=== PATIENT | female | born 1955 | race Caucasian/White ===

== ENCOUNTER 2019-10-06 14:45 | Emergency (ER) | payer MEDICARE, OTHER, SELFPAY | END 2019-10-06 18:20 | disposition home or self-care (01) | PROVIDERS: Family Provider Family Medicine | DX: R07.89 Other chest pain (principal); Z87.891 Personal history of nicotine dependence; J44.9 Chronic obstructive pulmonary disease, unspecified ==

== ENCOUNTER 2021-02-03 09:46 | Emergency (ER) | payer MEDICARE, OTHER, SELFPAY ==
[2021-02-03] VITALS (8 sets, daily range): BP systolic 127–148; BP diastolic 61–94; PULSE 59–84; RESP 14–24; TEMP 36.4; O2SAT 95–98; BMI 33.4
--- NOTE | 2021-02-03 10:11 | XR_ITS ---
WS: [id number] Exam: XR chest 1V portable [id number] Date/Time of Exam: 02/03/2021 10:15 AM Reason For Exam: anxiety/cp Comparison 10/06/2019. The lungs are clear and fully inflated. Normal cardiomediastinal structures and bony elements. No ple ural effusions. XR/XR chest 1V portable [id number] IMPRESSION: 1. No acute cardiopulmonary finding.
--- NOTE | 2021-02-03 10:13 | ED_ITS ---
HPI - Anxiety General: Chief Complaint: Anxiety Stated Complaint: CP Time Seen by Provider: 02/03/21 10:11 History of Present Illness: HPI narrative: Patient is a 65-year-old female comes to the ED with chest pain and shortness of breath. Patient has a past me dical history of asthma and anxiety. Symptoms started this morning. Patient says she has had episodes like this in the past and the chest pain and shortness of breath come on after she has a coughing fit. Her shortness of breath she describes as being her baseline due to her asthma and she has an inhaler that she uses at home. Chest pain started this morning after she was coughing a bunch. The chest pain is on the left side of her chest. Denies any hemoptysis, PE history or past history of cardiac problems. Patient did not also indicate that she has had a lot of anxiety lately and just started taking citalopram to help with her anxiety. Patient had 2 of her friends recently along with her cat. Denies any SI Associated symptoms: Reports chest pain; Deny chills, fever(s), headache(s), nausea, palpitations or vomiting Review of Systems Const: Denies: fever(s), chills or fatigue Eyes: Denies: change in vision or eye discomfort ENMT: Denies: throat pain, odynophagia, nasal discharge or nasal congestion Card: Reports: chest pain; Denies: palpitations, edema, swelling of feet/ankles, dyspnea on exertion or orthopnea Resp: Reports: dyspnea; Denies: productive cough or non-productive cough GI: Denies: abdominal pain, nausea, vomiting, diarrhea, constipation or hematochezia : Denies: flank pain, dysuria or hematuria Musc: Denies: neck pain, back pain or extremity swelling Skin/Breast: Denies: rash or new lesions Neuro: Denies: headache(s), numbness in extremities or weakness in extremities Psych: Reports: anxiety; Denies: suicidal ideation Physical Exam Const: COMMON NORMALS: no acute distress, patient oriented x3, healthy appearing and alert GENERAL APPEARANCE: cooperative and comfortable HENMT: COMMON NORMALS: normocephalic HEAD & SCALP: normocephalic MOUTH: Normal oral and palatal mucosa present THROAT: posterior oropharynx normal and uvula midline Neck/C-Spine: COMMON NORMALS: supple GENERAL: Yes normal visual inspection Resp: COMMON NORMALS: normal respiratory effort, No retractions and No use of accessory muscles EFFORT & INSPECTION: Yes able to speak in complete sentences, No tachypneic, No respiratory distress and No labored AUSCULTATION: wheezes expiratory wheezes and upper bilaterally Cardio: COMMON NORMALS: regular rate, regular rhythm, S1 normal heart sound present, S2 normal heart sound present, No gallops present (Cardio), No clicks present (Cardio), No murmurs present (Cardio) and Peripheral pulses 2+ throughout RATE: regular rate RHYTHM: regular rhythm HEART SOUNDS: S1 normal heart sound present and S2 normal heart sound present PERIPHERAL PULSES: Peripheral pulses 2+ throughout GI: COMMON NORMALS: Normal to inspection, nondistended, normoactive bowel sounds present, Soft to palpation, non-tender and no masses PALPATION: Yes Soft to palpation : COMMON NORMALS: Yes no CVA tenderness BLADDER/KIDNEY EXAM: Yes no CVA tenderness Back/Pelvis: COMMON NORMALS: no CVA tenderness Extremity: COMMON NORMALS: normal to inspection and no pedal edema Neuro: COMMON NORMALS: patient oriented x3 and moves all extremities SENSORIUM/ORIENTATION: Yes alert Skin: GENERAL SKIN EXAM: dry skin Course Reevaluation(s): Reevaluation #1: After patient was given IV Ativan and breathing treatment she says her symptoms have improved. She says her chest pain is gone. Upon auscultation of her lungs after breathing treatment there was improvement in wheezing symptoms. Time: 11:41 Vital Signs: Vital signs: Vital Signs Temperature 97.5 F L 02/03/21 09:55 Pulse Rate 76 02/03/21 13:20 Respiratory Rate 20 H 02/03/21 13:20 Blood Pressure 127/71 02/03/21 13:20 Pulse Oximetry 97 02/03/21 13:20 MDM - Anxiety MDM Narrative: Medical decision making narrative: Patient is a 65-year-old female comes to the ED with shortness of breath and chest pain. Patient has a past medical history of anxiety and asthma. Symptoms started after having a coughing spell in the morning. Patient did highlight PCP just put her on citalopram due to her anxiety. Patient recently had 2 of her friends and lost her And has having a tough time recently. Denies SI. Exam shows a nontoxic appearing 65-year-old female that is in no acute distress or pain. Her lungs have some upper bilateral wheezing. Vitals are stable. CBC and CMP were unremarkable. Troponins negative and EKG showed normal sinus rhythm with no ST segment elevation or depression seen. D-dimer in normal range at 0.33. Chest x-ray showed no acute findings. Patient was given a DuoNeb breathing treatment and dose of Ativan while here in the ED and her wheezing and chest pain resolved. Patient was also given a dose of Solu-Medrol here in the ED as well. Patient diagnosed with noncardiac chest pain and acute anxiety. She was discharged home with a Medrol Dosepak to help with her wheezing and she has inhalers at home that she uses daily. I also sent her home with a prescription for Vistaril and told her to follow-up with her PCP to discuss anxiety management. Return to ED precautions given. Patient understood and agreed with plan. Imaging Data^: CXR: Attestation: I personally reviewed and interpreted this imaging study as follows: Radiologist's impression: [address] [address] XRay Report Signed Patient: Viktoria Gamez Unit #: [id number] : [id number] Age/Sex: 65 / F ADM Date: 02/03/21 Loc: ER Room/Bed: Attending Dr: Ordering Provider/Ordering MD: Gene Christian Date of Service: 02/03/21 Procedure(s): XR chest 1V portable [id number] Accession Number(s): [id number] Report Number: [id number] WS: [id number] Exam: XR chest 1V portable [id number] Date/Time of Exam: 02/03/2021 10:15 AM Reason For Exam: anxiety/cp Comparison 10/06/2019. The lungs are clear and fully inflated. Normal cardiomediastinal structures and bony elements. No pleural effusions. XR/XR chest 1V portable [id number] IMPRESSION: 1. No acute cardiopulmonary finding. Dictated By: Srinivas Anthony DO Signed By: Srinivas Anthony DO Signed Date/Time: 02/03/21 1029 DD/ 1027 EKG Data^: EKG 1: Attestation: I personally reviewed and interpreted this EKG as follows: EKG interpretation date: 02/03/21 Interpretation: Chest X-Ray 02/03/21 10:11 IMPRESSION: 1. No acute cardiopulmonary finding. Sinus rhythm, 65 bpm, no ST segment elevation or depression seen. Other EKG comments: Chest X-Ray 02/03/21 10:11 IMPRESSION: 1. No acute cardiopulmonary finding. Lab Data: Attestation: I reviewed the patient's lab results. Labs: Lab Results 02/03/21 02/03/21 02/03/21 Range/Units 10:30 10:30 10:30 WBC 6.0 (4.0-10.0) 10^3/ uL RBC 4.85 (4.1-5.3) 10^6/u L Hgb 14.0 (11.5-15.3) g/dL Hct 43.2 (37.0-47.0) % MCV 89.1 (81-99) fL MCH 28.9 (28.0-34.0) pg MCHC 32.4 (30.0-36.0) g/dL RDW 13.2 (12.1-15.1) % Plt Count 285 (130-400) 10^3/c mm MPV 10.1 (7.4-10.4) fL Neut % (Auto) 51.0 % Lymph % (Auto) 36.4 % Barton % (Auto) 6.3 % Eos % (Auto) 5.0 % Baso % (Auto) 1.0 % Neut # (Auto) 3.05 (1.8-7.7) 10^3/u L Lymph # (Auto) 2.2 (0.8-4.8) 10^3/u L Barton # (Auto) 0.4 (0.2-0.9) 10^3/u L Eos # (Auto) 0.3 (0.0-0.8) 10^3/u L Baso # (Auto) 0.1 (0.0-0.1) 10^3/u L Nucleated RBC % (a uto) 0 % Nucleated RBCs # 0.0 /100WBC D-Dimer (0-0.59) ug/mIFE U Sodium 135 L (136-145) mmol/L Potassium 4.0 (3.5-5.1) mmol/L Chloride 101 (98-107) mmol/L Carbon Dioxide 24 (22-29) mmol/L Anion Gap 14.0 (5-19) BUN 13 (8-23) mg/dL Creatinine 0.7 (0.5-0.9) mg/dL GFR Calculation 83.5 L (90-130) mL/min Glucose 94 (65-115) mg/dL Calculated Osmolal ity 280 L (285-295) mOsm/k g Calcium 8.6 (8.5-10.5) mg/dL Total Bilirubin 0.4 (0.15-1.2) mg/dL AST 22 (0-32) U/L ALT 20 (0-33) U/L Alkaline Phosphata se 93 (35-105) IU/L Troponin T Baselin e 19 H (0-10) ng/L Troponin T 120 Min pam (0-10) ng/L Delta Troponin T (0-10) ABS# Total Protein 6.9 (6.6-8.7) g/dL Albumin 4.1 (3.5-5.2) g/dL Globulin 2.8 (1.3-4.6) g/dL 02/03/21 02/03/21 Range/Units 11:42 12:15 WBC (4.0-10.0) 10^3/ uL RBC (4.1-5.3) 10^6/u L Hgb (11.5-15.3) g/dL Hct (37.0-47.0) % MCV (81-99) fL MCH (28.0-34.0) pg MCHC (30.0-36.0) g/dL RDW (12.1-15.1) % Plt Count (130-400) 10^3/c mm MPV (7.4-10.4) fL Neut % (Auto) % Lymph % (Auto) % Barton % (Auto) % Eos % (Auto) % Baso % (Auto) % Neut # (Auto) (1.8-7.7) 10^3/u L Lymph # (Auto) (0.8-4.8) 10^3/u L Barton # (Auto) (0.2-0.9) 10^3/u L Eos # (Auto) (0.0-0.8) 10^3/u L Baso # (Auto) (0.0-0.1) 10^3/u L Nucleated RBC % (a uto) % Nucleated RBCs # /100WBC D-Dimer 0.33 (0-0.59) ug/mIFE U Sodium (136-145) mmol/L Potassium (3.5-5.1) mmol/L Chloride (98-107) mmol/L Carbon Dioxide (22-29) mmol/L Anion Gap (5-19) BUN (8-23) mg/dL Creatinine (0.5-0.9) mg/dL GFR Calculation (90-130) mL/min Glucose (65-115) mg/dL Calculated Osmolal ity (285-295) mOsm/k g Calcium (8.5-10.5) mg/dL Total Bilirubin (0.15-1.2) mg/dL AST (0-32) U/L ALT (0-33) U/L Alkaline Phosphata se (35-105) IU/L Troponin T Baselin e (0-10) ng/L Troponin T 120 Min pam 19.74 H (0-10) ng/L Delta Troponin T 0.74 (0-10) ABS# Total Protein (6.6-8.7) g/dL Albumin (3.5-5.2) g/dL Globulin (1.3-4.6) g/dL Discharge Plan Discharge Patient Disposition: Home Clinical Impression: Chest pain, non-cardiac, Acute anxiety Asthma Qualifiers: Asthma severity: mild Asthma persistence: intermittent Asthma complication type: uncomplicated Qualified Code(s): J45.20 - Mild intermittent asthma, uncomplicated Condition: Stable Prescriptions: New Medrol (Sae) 4 mg tablets,dose pack See Rx Instructions .ROUTE .COMPLEX Qty: 21 RF: 0 hydroxyzine pamoate 50 mg capsule 50 mg PO Q8H PRN (Reason: anxiety) Qty: 30 RF: 0 No Action citalopram 20 mg tablet 20 mg PO BEDTIME RF: 0 montelukast 10 mg tablet 10 mg PO DAILY PRN (Reason: Allergy Symptoms) RF: 0 Discharge Orders: Discharge ED (Routine); Ordered 02/03/21 Ordered By: Gene Christian Referrals: Tyler,Karoline [Primary Care Provider] - Discharge Diet: Regular Discharge Activity: Increase activity as tolerated Patient Instructions: Asthma (ED), Noncardiac Chest Pain (ED), Anxiety (ED) Activity Restrictions/Additional Instructions: Follow-up with medical provider as directed in 5 to 7 days for reevaluation. Take medications as prescribed. Return to the ER or your medical provider if condition worsens. Please read and understand discharge instructions. If any questions, please ask. Coding Level of Care Code ED Commercial Pest Control Technician for Celia Fwd Exam Comprehensive
[2021-02-03 10:45] LABS: Basophils # 0.1 10^3/uL (0.0-0.1); Eosinophils # 0.3 10^3/uL (0.0-0.8); Hematocrit 43.2 % (37.0-47.0); Lymphocytes # 2.2 10^3/uL (0.8-4.8); Lymphocytes % 36.4 %; Mean Corpuscular HGB Conc 32.4 g/dL (30.0-36.0); Mean Corpuscular Hemoglobin 28.9 pg (28.0-34.0); Mean Corpuscular Volume 89.1 fL (81-99); Mean Platelet Volume 10.1 fL (7.4-10.4); Monocytes # 0.4 10^3/uL (0.2-0.9); Monocytes % 6.3 %; Neutrophils # 3.05 10^3/uL (1.8-7.7); Nucleated Red Blood Cells % 0 %; Platelet Count 285 10^3/cmm (130-400); Red Blood Count 4.85 10^6/uL (4.1-5.3); Red Cell Distribution Width 13.2 % (12.1-15.1)
[2021-02-03 11:00] LABS: Alanine Aminotransferase 20 U/L (0-33); Albumin Level 4.1 g/dL (3.5-5.2); Alkaline Phosphatase 93 IU/L (35-105); Aspartate Amino Transferase 22 U/L (0-32); Blood Urea Nitrogen 13 mg/dL (8-23); Calcium 8.6 mg/dL (8.5-10.5); Carbon Dioxide 24 mmol/L (22-29); Chloride 101 mmol/L (98-107); Creatinine Clr Calc Pharmacy 84.3018; Globulin 2.8 g/dL (1.3-4.6); Glomerular Filtration Rate 83.5 mL/min (90-130); Glucose 94 mg/dL (65-115); Osmolality Calculated 280 mOsm/kg (285-295); Sodium 135 mmol/L (136-145); Total Bilirubin 0.4 mg/dL (0.15-1.2); Total Protein 6.9 g/dL (6.6-8.7)
[2021-02-03 11:05] LABS: Troponin(5th) Baseline 19 ng/L (0-10)
[2021-02-03] MEDS: ipratropium-albuterol 3 mL Neb 6 ML INHALATION (11:12)
[2021-02-03] MEDS: LORazepam 2 mg/mL INJ 1 mL 1 MG IVP (11:14)
[2021-02-03] MEDS: aspirin 81 mg Chew Tablet 324 MG PO (11:15)
--- NOTE | 2021-02-03 12:11 | ECG_ITS ---
[facility] Test Date: 2021-02-03 Pat Name: Viktoria Gamez Department: Room: Gender: Female Mold Changer: : 1955 Requested By: Gene Christian Order Number: [id number] Mandel MD: Lubna Jackson M.D. Measurements Intervals [place] Rate: 65 P: 50 ND: 148 QRS: -54 QRSD: 133 T: 20 QT: 440 QTc: 457 Interpretive Statements SINUS RHYTHM RIGHT BUNDLE BRANCH BLOCK LEFT ANTERIOR FASCICULAR BLOCK MODERATE VOLTAGE CRITERIA FOR LVH, CONSIDER NORMAL VARIANT Compared to ECG 10/06/2019 17:52:17 Myocardial infarct finding no longer present Electronically Signed On 02-04-2021 7:45:41 CDT by Lubna Jackson M.D. [id number]
[2021-02-03 12:41] LABS: Troponin 5 2HR 19.74 ng/L (0-10); Troponin 5 2HR Delta 0.74 ABS# (0-10)
[2021-02-03 12:50] LABS: D Dimer 0.33 ug/mIFEU (0-0.59)
== END 2021-02-03 13:20 | disposition home or self-care (01) ==
PROVIDERS: Emergency Provider Physician Assistant; PCP Nurse Practitioner Family
DX: R07.89 Other chest pain (principal); F41.9 Anxiety disorder, unspecified; J45.20 Mild intermittent asthma, uncomplicated
CPT/HCPCS: 36415; 71045; 80053; 84484; 85025; 85378; 93005; 94640; 96374; 96375; 99284; J2060; J2930

== ENCOUNTER 2022-07-24 17:53 | Emergency (ER) | payer MEDICARE, OTHER, SELFPAY ==
--- NOTE | 2022-07-24 18:09 | XRR_ITS ---
PROCEDURE INFORMATION: Exam: XR Left Hand Exam date and time: 07/24/2022 6:52 PM Age: 66 years old Clinical indication: Pain; Hand; Left; Prior surgery; Surgery date: 6+ months; Surgery type: Lt. Wrist; Additional info: Injury TECHNIQUE: Imaging protocol: Radiologic exam of the Left hand. Views: 3 or more views. COMPARISON: No relevant prior studies available. FINDINGS: Bones/joints: Metallic fixation of healed distal radial fracture. Displaced intra-articular fracture in the medial base of the 5th metacarpal bone. Comminuted angulated fracture involving the shaft and neck of the 5th metacarpal. Soft tissues: Soft tissue swelling and soft tissue emphysema most consistent with penetrating trauma and/or open fracture. XR/XR hand LT min 3V* [id number] IMPRESSION: 1. Metallic fixation of healed distal radial fracture. 2. Displaced intra-articular fracture in the medial base of the 5th metacarpal bone. 3. Comminuted angulated fracture involving the shaft and neck of the 5th metacarpal. 4. Soft tissue swelling and soft tissue emphysema most consistent with penetrating trauma and/or open fracture..
--- NOTE | 2022-07-24 18:09 | XRR_ITS ---
PROCEDURE INFORMATION: Exam: XR Left Forearm Exam date and time: 07/24/2022 6:55 PM Age: 66 years old Clinical indication: Pain; Lower or forearm; Left; Prior surgery; Surgery date: 6+ months; Surgery type: Lt. Wrist; Additional info: Injury TECHNIQUE: Imaging protocol: Radiologic exam of the Left forearm. Views: 2 views. COMPARISON: CR (UP EXM, ) 07/24/2022 6:52 PM FINDINGS: Bones/joints: Stable metallic fixation of distal radial fracture. Soft tissues: Resolution of previously noted soft tissue emphysema. XR/XR forearm LT 2V [id number] IMPRESSION: 1. Stable metallic fixation of distal radial fracture. 2. Resolution of previously noted soft tissue emphysema.
[2022-07-24 18:10] VITALS: BP 136/78; PULSE 104; RESP 20; TEMP 36.7; O2SAT 94; BMI 50.0
--- NOTE | 2022-07-24 18:11 | W.ED.UPPEXIN ---
HPI - Extremity Injury (Upper) General: Chief Complaint: Wound/Laceration Stated Complaint: Dog Fight injury to left hand Time Seen by Provider: 07/24/22 18:10 History of Present Illness: 66-year-old female comes in today for injury sustained to the left hand and arm. Patient was trying to separate her dogs while they were fighting and ended up with injury to the dorsal hand. Patient states that her tetanus shot is out of date. Patient is alert and oriented and has a history of asthma. Review of Systems Const: Denies: fever(s) Musc: Reports: extremity pain and extremity swelling Skin/Breast: Reports: other (Skin tears and laceration to the dorsal hand) Physical Exam Const: COMMON NORMALS: alert HENMT: COMMON NORMALS: normocephalic HEAD & SCALP: normocephalic Neck/C-Spine: COMMON NORMALS: full ROM Resp: COMMON NORMALS: normal respiratory effort and clear to auscultation bilaterally AUSCULTATION: clear to auscultation bilaterally GI: COMMON NORMALS: non-tender Extremity: LEFT UPPER EXTREMITY: Yes lower arm (Superficial skin tears are noted to the dorsal arm) and Yes hand & digits (And has some significant swelling, laceration to the dorsal hand irregular) Left hand and digits: Yes inspection, Yes palpation and Yes ROM Neuro: SENSORIUM/ORIENTATION: Yes alert Skin: TRAUMA: laceration (Dorsal left hand) irregular Course ED course: 1924, reviewed patient with Dr. Spivey who recommended consultation with orthopedist. Dr. Christian was consulted with recommendation of irrigation of wound and then wet to dry dressing and follow-up in the office in the morning. Vital Signs: Vital signs: Vital Signs Temperature 98.1 F 07/24/22 18:10 Pulse Rate 104 H 07/24/22 18:10 Respiratory Rate 20 H 07/24/22 18:10 Blood Pressure 136/78 07/24/22 18:10 Pulse Oximetry 94 07/24/22 18:10 Oxygen Delivery Me thod 07/24/22 18:10 MDM - Extremity Injury (Upper) Medical Decision Making Patient comes in today for injury to the left hand due to a dog bite. On exam patient has a irregular laceration to the dorsal left hand between the first and second digit. Patient also has some puncture wounds and some superficial skin tears along the forearm and hand. Patient has some significant swelling is very guarded with movement due to pain. Patient does have intact tendon function and cap refill distally. Differential diagnosis includes laceration, fracture, need for prophylaxis tetanus. X-ray noted a comminuted fracture of the fifth metacarpal and a fracture along the base of the second metacarpal. Wounds were irrigated thoroughly with saline. Then wet-to-dry dressing was applied followed by a volar hand and wrist splint. Patient was instructed to follow-up with the orthopedist office in the morning for further evaluation and treatment. Lab Data Radiology Impressions Forearm X-Ray 07/24/22 18:09 IMPRESSION: 1. Stable metallic fixation of distal radial fracture. 2. Resolution of previously noted soft tissue emphysema. Hand X-Ray 07/24/22 18:09 IMPRESSION: 1. Metallic fixation of healed distal radial fracture. 2. Displaced intra-articular fracture in the medial base of the 5th metacarpal bone. 3. Comminuted angulated fracture involving the shaft and neck of the 5th metacarpal. 4. Soft tissue swelling and soft tissue emphysema most consistent with penetrating trauma and/or open fracture.. Discharge Plan Discharge Patient Disposition: Home Clinical Impression: Dog bite Laceration of hand, left Qualifiers: Encounter type: initial encounter Foreign body presence: unspecified Qualified Code(s): S61.412A - Laceration without foreign body of left hand, initial encounter Hand fracture, left Qualifiers: Encounter type: initial encounter Fracture type: open Qualified Code(s): S62.92XB - Unspecified fracture of left wrist and hand, initial encounter for open fracture Condition: Stable Prescriptions: New Cipro 500 mg tablet 500 mg PO BID Qty: 14 0RF clindamycin HCl 300 mg capsule 300 mg PO TID 7 Days Qty: 21 0RF hydrocodone-acetaminophen 7.5-325 mg tablet 1 tab PO Q6H PRN (Reason: pain (scale score 7-10)) Qty: 14 0RF No Action citalopram 20 mg tablet 20 mg PO BEDTIME montelukast 10 mg tablet 10 mg PO DAILY PRN (Reason: Allergy Symptoms) Medrol (Sae) 4 mg tablets,dose pack See Rx Instructions .ROUTE .COMPLEX Qty: 21 0RF Rx Instructions: orally per package directions hydroxyzine pamoate 50 mg capsule 50 mg PO Q8H PRN (Reason: anxiety) Qty: 30 0RF Discharge Orders: Discharge ED (Routine); Ordered 07/24/22 Ordered By: Lorenzo Deleon Referrals: Karoline Scott FNP [Primary Care Provider] - Tyson Christian DO [Physician] - Discharge Diet: Usual diet Discharge Activity: Increase activity as tolerated Patient Instructions: Splint Care (ED), Opioid Safety Activity Restrictions/Additional Instructions: Keep splint and dressing clean and dry. Follow-up with orthopedics office in the morning. You need to call them first thing to find out what time to be in the office. At that time Dr. Christian will review further care and instructions. Return to ER for high fever, uncontrolled pain, or new concerns. Coding Level of Care Code ED Scientist Electronics for Chg Fwd Exam Detailed
[2022-07-24] MEDS: HYDROcodone-acetaminophen 10-325 mg Tablet 1 TAB PO (18:15)
[2022-07-24] MEDS: ondansetron 4 MG Tablet PO (18:45)
[2022-07-24] MEDS: tetanus-dipt-pertussis 0.5 mL SDV IM (20:31)
[2022-07-24] MEDS: ceFAZolin 1,000 mg SDV 1000 MG IM (20:31)
[2022-07-25] MEDS: clindamycin 150 mg Capsule 300 MG PO (06:53)
[2022-07-25] MEDS: ciprofloxacin 500 mg Tablet PO (06:54)
== END 2022-07-24 20:16 | disposition home or self-care (01) ==
PROVIDERS: Emergency Provider Nurse Practitioner Family; PCP Nurse Practitioner Family
DX: S61.452A Open bite of left hand, initial encounter (principal); S62.92XB Unspecified fracture of left hand, initial encounter for open fracture; W54.0XXA Bitten by dog, initial encounter; Z23 Encounter for immunization
CPT/HCPCS: 73090; 73130; 90471; 90715; 96372; 99284; J0690; Q0162

== ENCOUNTER 2022-07-25 12:34 | Observation (INO) | payer MEDICARE, OTHER, SELFPAY ==
[2022-07-25] VITALS (20 sets, daily range): BP systolic 94–165; BP diastolic 57–91; PULSE 67–85; RESP 12–18; TEMP 36.5–37.4; O2SAT 91–96; BMI 33.9
--- NOTE | 2022-07-25 | XR_ITS ---
WS: [id number] Left hand, C-arm fluoroscopy, 07/25/2022. Clinical Data: Open reduction internal fixation left fifth metacarpal fract Comparison: Left hand, 07/24/2022. Findings: There is internal fixation of the comminuted fracture of the left fifth metacarpal with a longitudina l pin and transverse fixation with a second pin across the fifth metacarpal and the fourth metacarpal . XR/XR hand LT 2V [id number] Impression: Internal fixation of comminuted left fifth metacarpal fracture
--- NOTE | 2022-07-25 | SCC_ITS ---
Procedure done: Left hand and forearm irrigation and debridement Second metacarpal irrigation and debridement with open reduction internal fixation Fifth metacarpal irrigation debridement with open reduction internal fixation Ulnar gutter splint application 14 seconds of fluoroscopic guidance, for a cumulative dose of 4.6 mGy, was provided to Dr. Christian by the radiology department. C-arm images of the LEFT hand were saved for the patient's permanent record. CURTIS
--- NOTE | 2022-07-25 12:16 | ANES.PREANE2 ---
Pre-Anesthetic Assessment Height/Weight: Height 1.68 m Weight 95.254 kg Temp Pulse Resp BP Pulse Ox O2 Del Method 99.4 F 82 18 138/70 95 07/25/22 11:55 07/25/22 11:55 07/25/22 11:55 07/25/22 11:55 07/25/22 11:55 07/25/22 11:55 Operation Date: 07/25/22 12:00 Proposed Procedures p LEFT HAND SECOND METACARPAL IRRIGATION AND DEBRIDEMENT, FIFTH METACARPAL IRRIGATION AND DEBRIDEMENT, OPEN REDUCTION INTERNAL FIXATION 42101, 25658,M25.539(Left) - Tyson Anahi, DO s ORIF Metacarpal(Left) - Tyson Braxton, DO Familial anesthetic complications: none Was Beta Jamar taken within 24 hours: N/A Was Clonidine taken within 24 hours: N/A Last intake: > 8hrs Social No alcohol and No tobacco Exam alert, oriented x 3, clear to auscultation bilaterally (b/l light wheezes) and regular rate & rhythm Airway Mallampati: Class II Dentition: full Pulmonary Asthma asthma w/ coughing spells worsening over the last 5 months. Coughing spells 1-2x a day. Is supposed to start steroid, but hasn't picked it up yet Anesthetic Plan ASA status: 3 Anesthesia: General Risk of > 500 ml blood loss (7ml/kg in children): No Medications/Allergies Home Medications Medication Instructions Recorded Confirmed Last Taken Type citalopram 20 mg tablet 20 mg PO BEDTIME 02/03/21 07/25/22 02/02/21 History hydroxyzine pamoate 50 mg capsule 50 mg PO Q8H PRN anxiety #30 caps 02/03/21 07/25/22 Unknown Rx methylprednisolone 4 mg tablets in See Rx Instructions PO .COMPLEX 02/03/21 07/25/22 Unknown Rx a dose pack (Medrol (Sae)) #21 ea montelukast 10 mg tablet 10 mg PO DAILY PRN Allergy Symptoms 02/03/21 07/25/22 Unknown History ciprofloxacin HCl 500 mg tablet 500 mg PO BID #14 tabs 07/24/22 07/25/22 Unknown Rx (Cipro) clindamycin HCl 300 mg capsule 300 mg PO TID 7 days #21 caps 07/24/22 07/25/22 Unknown Rx hydrocodone 7.5 mg-acetaminophen 1 tab PO Q6H PRN pain (scale score 07/24/22 07/25/22 Unknown Rx 325 mg tablet 7-10) #14 tabs Allergies Allergy/AdvReac Type Severity Reaction Status Date / Time Penicillins Allergy ALGY-Anaphy Verified 07/25/22 09:48 laxis Data Anesthesia Cardiac Studies: No Data to Display
--- NOTE | 2022-07-25 12:20 | W.PM.OPSUD ---
Surgery/Procedure H&P Update DATE OF PROCEDURE: July 25, 2022 DATE H&P PERFORMED: 07/25/22 CHANGES TO PREVIOUS DOCUMENTATION: None PREOP DIAGNOSIS: Dog bite left hand second and fifth metacarpal fractures PRIMARY INDICATION FOR PROCEDURE: Dog bite left hand with second and fifth metacarpal fractures. PLANNED PROCEDURE: Operation Date: 07/25/22 12:00 Proposed Procedures p LEFT HAND SECOND METACARPAL IRRIGATION AND DEBRIDEMENT, FIFTH METACARPAL IRRIGATION AND DEBRIDEMENT, OPEN REDUCTION INTERNAL FIXATION 25645, 84119,M25.539(Left) - DO kellen Harding ORIF Metacarpal(Left) - Tyson Christian DO
--- NOTE | 2022-07-25 12:51 | ANES.PROC ---
Anesthesia Procedures Procedure/Date: 07/25/22 Nerve Block ^: Nerve Block 1: Main Anesthesia: general anesthesia Time Out Performed: Yes Consent: requested by attending/covering physician, from patient, risks and benefits reviewed and patient agrees to proceed Nerve block location: axillary (L + musculocutaneous) Anesthesia monitors applied: pulse oximetry, EKG and BP cuff Nerve block position: supine Anesthetic Used: ropivicaine 0.5% (30 ml) and with decadron (4 mg) Ultrasound used to: recognize landmarks and visualize and ID brachial plexus Nerve Stimulator Used?: No Interscalene/Femoral BLK: 2 stimuplex 22 g needle used for position and inplane approach, visualize local anesthetic spread and no vascular puncture identified Injection: neg aspiration of heme and paresthesia +/- Patient Tolerated Procedure: well Complications: none
[2022-07-25] MEDS: sodium chloride 0.9% 1,000 ML 30 ML IV (12:53)
[2022-07-25] MEDS: gabapentin 300 mg Capsule PO (12:53)
[2022-07-25] MEDS: acetaminophen 1,000 MG/100 ML PIGGYBACK 400 MG IV (13:00)
[2022-07-25] MEDS: clindamycin 600 MG/50 ML PREMIX 100 MG IV (13:01)
[2022-07-25] MEDS: ketorolac 30 mg/mL INJ IVP (13:01)
--- NOTE | 2022-07-25 15:20 | P.OP_ITS ---
Brief Operative Note Date of procedure: 07/25/22 Pre-op diagnosis: Left hand dog bite with second metacarpal and fifth metacarpal fractures Post-op diagnosis: same Procedure Done: Left hand and forearm wounds irrigation and debridement, irrigation and debridement second metacarpal with open reduction internal fixation, irrigation and debridement fifth metacarpal with open reduction internal fixation. Surgeon: Tyson Christian Estimated blood loss (mL): 5 Complications: None Post-op Plan: Patient to recover in PACU. Given extensiveness of numerous dog bites as well as involvement with bone. Patient will be admitted postoperatively for 24 hours IV antibiotics. We will consult internal medicine for medical management and appreciate their assistance with antibiotic empiric coverage. Patient will be admitted for elevation ice as well as Toradol and postoperative antibiotics. Pain control. Patient currently in ulnar gutter splint dressings clean dry and intact. Plan for likely discharge tomorrow. Condition: stable Disposition: floor Coding Level of Care Code Acute Sandblaster Stone for Celia Decker
--- NOTE | 2022-07-25 15:41 | PM.PACU ---
PACU note Narrative: Patient seen and evaluated in PACU. Patient's pain controlled. She still sedated from anesthesia. Unable to follow commands appropriately. Her fingertips are warm well perfused. Dressing clean dry and intact and splint on in place. Patient did receive block preoperatively. We will assess motor and sensory status in the morning once patient is block is worn off. Exam: somnolent, arousable (But unable to follow commands see report narrative for detailed exam) Disposition: admitted
--- NOTE | 2022-07-25 15:50 | P.OP_ITS ---
Operative Report Date of procedure: July 25, 2022 Pre-op diagnosis: Preop Diagnosis Dog bite left hand second and fifth metacarpal fractures Post-op diagnosis: Dog bites left hand and forearm with second and fifth metacarpal fractures Procedure done: Left hand and forearm irrigation and debridement Second metacarpal irrigation and debridement with open reduction internal fixation Fifth metacarpal irrigation debridement with open reduction internal fixation Ulnar gutter splint application Implants: 3 K wires x0.045 Surgeon: Tyson Christian DO Estimated blood loss: 5 95 minutes IV fluids: See anesthesia record Complications: None Findings: See procedure note for details Condition: stable Disposition: observation Brief History: Viktoria is a pleasant 66-year-old female who attempted to break up a dog fight amongst her 3 dogs and subsequently sustained multiple dog bites to the left hand and forearm. Patient was initially seen evaluated emergency department irrigated and cleaned out at bedside start started on dose of IV antibiotics was discharged home with follow-up early the next morning in outpatient setting w olegario Hunter saw and evaluated patient. Given the fractures of the second and fifth metacarpal as well as multiple wounds and severity of the dog bite recommended taking patient to the OR for left hand and forearm irrigation debridement with irrigation debridement of the second metacarpal and irrigation debridement fifth metacarpal with open reduction internal fixation. Through shared decision- making patient agrees to proceed with surgical intervention. She understands risk benefits complication alternatives to treatment options. Risks include but are not limited to make it better, make it worse, infection, further surgeries for repeat washouts decreased range of motion of the hand, malunion, nonunion, decreased function to the hand. Understand these risks he agrees to proceed with surgical intervention. She is taken to the OR urgently today later in the morning for surgery.. Patient understands agrees with current plan. All questions answered. Procedure: Patient seen evaluated in the preoperative holding area. Consent was reviewed with patient all questions were answered. The correct extremity was then marked. Patient was then seen and evaluated by the preoperative holding team and the anesthesia department. Once ready for surgery she was subsequently taken back to the operative suite. She was then transported onto the OR table underwent anesthesia per the anesthesia department. The left upper extremity was then placed on an armboard. All bony prominences were well-padded and patient was appropriately secured to the bed. Next patient had a upper extremity tourniquet nonsterile applied to the left upper extremity. Next the left upper extremity was then prepped and draped in standard orthopedic fashion. Final timeout was performed. Patient received appropriate preoperative antibiotics. Esmarch tourniquet was used exsanguinate the left upper extremity, tourniquet was insufflated 250 mmHg. Patient had numerous dog bites along the hand as well as the forearm. Started off by superficially irrigating all wounds. I utilized blunt hemostat scissors to break up any loculations and to allow open draining and debridement of several wounds throughout the dorsal aspect of the forearm but these were more superficial in nature. Distally in the hand there were numerous dog bites that were again debrided with superficial skin and subcutaneous tissue Left open after irrigation. Main focus was based on irrigation debridement of the second and fifth metacarpal. I started with my attention towards the second metacarpal as this had the largest wound roughly dog bite of 4 to 5 cm in size centered over the base of the second metacarpal. Initially I extended these dog bite incisions to roughly a 8 cm incision. A sharp scalpel excision through skin and then quickly transition into Littler dissection scissors with care to protect any dorsal cutaneous branches. I identified the superficial radial nerve and a dorsal branch of the hand. This was in very close proximity to patient's dog bite wound however the nerve did not appear to be injured or lacerated. At this point time was protected throughout the case. I utilized dissection scissors to dissect directly down over to the fracture site. At this point in time I then identified the fracture site cleared this of all fracture hematoma as well as debrided any devitalized and necrotic appearing tissue. This included sharp scalpel excision rongeur and curettage of bone fascia subcutaneous fat and skin. This was all thoroughly irrigated and debrided the total wound bed measured roughly 8 cm x 3 cm x 2 cm. Once the bone was adequately debrided and irrigated I had appropriate cortical read at the base of the second metacarpal. It was evident that this fracture piece was the insertion site of the ECRL. Due to the importance of ECRL and this being significantly displaced upon my direct visualization I utilized my pickups to reduce this into place and then placed a K wire with bicortical fixation into the second metacarpal to hold this fracture piece to allow for appropriate anatomic healing. Once again then I thoroughly irrigated the wound bed and then reapproximated the soft tissue with interrupted nylon sutures. The K wire was left percutaneously out of the skin and Jurgensen ball was attached to the end. Next my attention was turned towards the fifth metacarpal fracture. These had 2 main dog bites wounds that were directly over the base of the metacarpal as well as slightly ulnar and volar right at the metacarpal neck. Given the extent of these dog bite wounds and the significant comminution on fracture site and need for debridement I then connected these to dog bite wounds on the ulnar aspect of the metacarpal. Sharp scalpel excision through skin and subcutaneous tissue and then Littler dissection scissors to care to protect any dorsal cutaneous branches throughout my dissection I entered directly onto bone and noted a severely comminuted entire fifth metacarpal fracture. There was one large fragment at the base of the metacarpal. This was an entry site for one of the dog to switch with this bone was then thoroughly irrigated and debrided with sharp scalpel excision as well as curettes and rongeur of bone fascia muscle subcutaneous tissue and skin this was removed of all devitalized tissue. The total wound bed of the fifth metacarpal incision to an irrigation debridement was roughly 5 cm x 2 cm x 1 cm. The fracture at the base was reasonably stable with a 1 main fracture line. Attention was turned towards the second dog bite more distal and this was right directly over the metacarpal head and neck. On dissection it was evident that this was severely comminuted with a completely dissociated shell of the metacarpal head and articular surface as well as from the metaphyseal and neck junction was completely dissociated with no true cortical bone to fix with plates and screws or even reasonably well with K wire fixation. At this point time I open book the fracture where the dog bite had occurred debrided the entire fracture site completely with curettage scalpel excision and rongeur. This debrided all devitalized bone as well as muscle belly fascia subcutaneous tissue and skin. This wound was then thoroughly irrigated. At this point time it was clearly evident in resting position that the fracture was in reasonable alignment however I felt given the comminution it would benefit from some form of stability with K wire fixation. At this point time I held the 2 appropriate length there was a large segment of the fifth metacarpal shaft that had good cortical bone that I could percutaneously place a K wire directly across from the fifth metacarpal into the fourth and third to give some stability and length to the shaft fragment. I then sequentially tried to place K wires in retrograde fashion from the metacarpal collateral recesses however this only further displaced my articular surface because there was only a shell of the metacarpal head left. After couple attempts of trying to obtain fracture fixation distally was clearly evident this would only further comminuted in displace her fracture based on how was sitting and resting position. As a result I felt my only next best option was to place a bouquet pin. Proximally there was a small fracture at the base which allowed for an excellent entry point for bouquet pinning. I gently bent my K wire and subsequently entered through this fracture site and placed a bouquet pin in hopes to tamp and hold the shell of the metacarpal head as well as to add some stability to the metacarpal neck comminution while again being stabilized within the metacarpal shaft. This point time this held in reasonable position position with obviously was not the most ideal and rigid fixation but given her comminution think this was her best fit. I did attempt 1 more bouquet pinning however the canal was too tight and would not accommodate for another K wire given the 2 pin fixation. This point time felt this was satisfactory. All K wire fixation and fracture evaluation was done with mini C arm utilizing multiple orthogonal images. Final images were taken showing satisfactory reduction and fixation of base of second metacarpal fracture as well as fifth metacarpal fracture. The wound beds were then thoroughly irrigated. Attention was then turned towards the small dog bites over the dorsal aspect of the hand which blunt hemostat was used to break up any potential loculations and irrigation was performed. Tourniquet was then deflated hemostasis was found to be adequate with bipolar electrocautery. The fifth metacarpal incision was then closed with interrupted nylon suture. Pins were left out of the skin and capped with Jurgan's balls. Incisions were then covered with Xeroform as well as all the other dog bites throughout the hand and forearm. 4 x 4's ABD Curlex soft roll as well as ulnar gutter fiberglass splint was applied with an Renard wrap. Patient was then awakened from anesthesia and taken to PACU in stable condition Disposition: Patient taken to PACU in stable condition. Patient's pain well controlled. We will have patient admitted for observation for 24-hour IV antibiotics. Will consult hospitalist for antibiotic assistance management and discharge recommendations as well as assistance with medical management. We will have patient on aggressive elevation as well as IV Toradol for pain and swelling. Plan will be for discharge after 24 hours IV antibiotics. Patient understands and agrees with current plan. All questions answered. Patient will be given appropriate discharge instructions as well as pain medication and antibiotics postoperatively. She will see me in office in 2 weeks.
--- NOTE | 2022-07-25 15:58 | P.HP_ITS ---
Providers/Chief Complaint Admitting Physician: Tyson Christian DO Primary Care Provider: Karoline Scott Chief Complaint: M25.539 History of Present Illness Viktoria Gamez is a 66 year old female with a past medical history of asthma, anxiety, who presents to the [facility] due to a dog bite left hand, with intra-articular fracture medial base of fifth metacarpal bone, s/p nathanael ridement in the OR by orthopedic service, she was seen by me postop recovery. She is alert to person, to place, not to time, she can answer most questions appropriately, she tells me that she was breaking up her dogs last night, when one of the dogs bit her on the left hand, her dogs have been all vaccinated for rabies, have not shown any signs of rabies, she was also given tetanus vaccination in the emergency room she tells me, currently she hurts after her surgery, she denies any significant cardiovascular history, no history of lung disease, no history of CVA Review of Systems Card: Denies: chest pain Resp: Denies: dyspnea Medications/Allergies Home Medications Medication Instructions Recorded Confirmed Last Taken Type citalopram 20 mg tablet 20 mg PO BEDTIME 02/03/21 07/25/22 02/02/21 History hydroxyzine pamoate 50 mg capsule 50 mg PO Q8H PRN anxiety #30 caps 02/03/21 07/25/22 Unknown Rx methylprednisolone 4 mg tablets in See Rx Instructions PO .COMPLEX 02/03/21 07/25/22 Unknown Rx a dose pack (Medrol (Sae)) #21 ea montelukast 10 mg tablet 10 mg PO DAILY PRN Allergy Symptoms 02/03/21 07/25/22 Unknown History ciprofloxacin HCl 500 mg tablet 500 mg PO BID #14 tabs 07/24/22 07/25/22 Unknown Rx (Cipro) clindamycin HCl 300 mg capsule 300 mg PO TID 7 days #21 caps 07/24/22 07/25/22 Unknown Rx hydrocodone 7.5 mg-acetaminophen 1 tab PO Q6H PRN pain (scale score 07/24/22 07/25/22 Unknown Rx 325 mg tablet 7-10) #14 tabs Allergies Allergy/AdvReac Type Severity Reaction Status Date / Time Penicillins Allergy ALGY-Anaphy Verified 07/25/22 09:48 laxis PFSH Acute PFSH: Medical History (Updated 07/25/22 @ 16:01 by Dudley Robert MD) History of anxiety Surgical History (Updated 07/25/22 @ 16:01 by Dudley Robert MD) History of hysterectomy Social History (Updated 07/25/22 @ 16:02 by Dudley Robert MD) Smoking and tobacco status: never smoked Alcohol intake: never Substance/Drug Use: never Vitals/I&O/Wt Last Vital Signs Temp 99.4 F 07/25/22 11:55 Pulse 85 07/25/22 12:31 Resp 18 07/25/22 12:31 BP 138/70 07/25/22 11:55 Pulse Ox 95 07/25/22 12:31 O2 Del Method 07/25/22 12:31 07/25/22 07/25/22 07/25/22 06:59 14:59 22:59 Intake Total 50 / 50 Balance 50 / 50 Weight last 48 hrs Weight 95.254 kg Physical Exam Const: COMMON NORMALS: no acute distress OTHER: Alert to person, to place, not to time Resp: COMMON NORMALS: normal respiratory effort, No retractions, No use of accessory muscles and clear to auscultation bilaterally AUSCULTATION: clear to auscultation bilaterally Cardio: COMMON NORMALS: regular rate, regular rhythm, S1 normal heart sound present and S2 normal heart sound present RATE: regular rate RHYTHM: regular rhythm HEART SOUNDS: S1 normal heart sound present and S2 normal heart sound present GI: COMMON NORMALS: Normal to inspection, nondistended, normoactive bowel sounds present, Soft to palpation, non-tender and No hepatosplenomegaly present Extremity: COMMON NORMALS: no clubbing, cyanosis or edema and no pedal edema NARRATIVE EXTREMITY EXAM: Left upper extremity, wrapped Neuro: COMMON NORMALS: patient oriented x3 Psych: COMMON NORMALS: mental status grossly normal A&P Assessment and plan (1) Dog bite: (2) Laceration of hand, left: Qualifiers: Encounter type: initial encounter Foreign body presence: unspecified Qualified Code(s): S61.412A - Laceration without foreign body of left hand, initial encounter (3) Hand fracture, left: Qualifiers: Encounter type: initial encounter Fracture type: open Qualified Code(s): S62.92XB - Unspecified fracture of left wrist and hand, initial encounter for open fracture Plan Dog bite with fracture -Status post incision and drainage by orthopedic team -Has received tetanus prophylaxis emergency room -Was discharged on oral antibiotics -Here we will place her on clindamycin for anaerobic coverage, add vancomycin for MRSA coverage, add doxycycline Pasteurella coverage -She is adamant that her dogs have been vaccinated for rabies, however I would recommend quarantine for at least 10 days to see if her dog is symptomatic, or at least advocate for testing the animal, however cases of rabies in vaccinated animals is very rare -Pain control oxycodone -Zofran for nausea -DVT prophylaxis as per orthopedic team Attestations Medical Necessity Statement*: Patient requires hospitalization, for dog bite, left hand fracture Coding Level of Care Code Acute 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
[2022-07-25] MEDS: doxycycline 100 MG in sodium chloride 0.9% (plus) 100 ML IV (16:46)
[2022-07-25] MEDS: ketorolac 30 mg/mL INJ 15 MG IVP (18:04)
[2022-07-25] MEDS: vancomycin 1,250 MG/250 ML PIGGYBACK 250 MG IV (18:04)
[2022-07-25] MEDS: clindamycin 900 MG/50 ML PREMIX 100 MG IV (21:46)
[2022-07-26 00:14] LABS: Blood Urea Nitrogen 10 mg/dL (8-23); Calcium 8.4 mg/dL (8.5-10.5); Carbon Dioxide 23 mmol/L (22-29); Chloride 104 mmol/L (98-107); Creatinine Clr Calc Pharmacy 78.2867; Glomerular Filtration Rate 71.3 mL/min (90-130); Glucose 186 mg/dL (65-115); Osmolality Calculated 288 mOsm/kg (285-295); Sodium 137 mmol/L (136-145)
--- NOTE | 2022-07-26 00:32 | PC.PHAR ---
Pharmacokinetic dosing service Date: 07/26/22 Time: 31 Objective: Patient: Viktoria Gamez Floor: 251[address]2 Age: 66 yo Serum creatinine: 0.8 mg/dL Height: 66.0 Inches Weight (kg): 95.254 Diagnosis: Relevant medical/social history: Cultures and sensitivities: Other labs: Assessment: IBW (kg): 59.30 Dosing wt(kg): 95.254 Estimated Creatinine clearance (ml/min): 63.0 CRCL method: Cockcroft and Gault using ibw(default). Drug selected: Vancomycin Loading dose (mg): 0 Vd (liters): 85.7 (factor used: 0.9 L/kg) Giovanny (hr-1): 0.057 Half life (hrs): 12.16 Recommended dose: 1250 mg Interval: 12 hrs Infusion time (hrs): 1.5 Predicted peak (mcg/mL): 28.2 Predicted trough (mcg/mL): 15.50 Total body weight is being used for vancomycin dosing. Renal function is stable [ ] /unstable [ ] Recommendations: Give Vancomycin 1250 mg q 12 hrs with an expected Cpeak of 28.2 mcg/ml and an expected Ctrough of 15.50 mcg/ml Renal dosing of other antibiotics (review renal dosing of other medications and list guidelines here): Thank you for the consult, will continue to follow. Signature: Sheri Chin [facility]
[2022-07-26] MEDS: ketorolac 30 mg/mL INJ 15 MG IVP ×3 (01:56→14:04)
[2022-07-26 03:35] VITALS: BP 96/58; PULSE 66; RESP 14; TEMP 36.9; O2SAT 94
[2022-07-26] MEDS: clindamycin 900 MG/50 ML PREMIX 100 MG IV ×2 (04:38→13:42)
[2022-07-26] MEDS: doxycycline 100 MG in sodium chloride 0.9% (plus) 100 ML IV (05:07)
[2022-07-26] MEDS: vancomycin 1,250 MG/250 ML PIGGYBACK 250 MG IV (06:13)
--- NOTE | 2022-07-26 08:25 | PC.PHAR ---
pt states she takes care of her own medications-pt states she never filled the cipro 500mg bid-clindamycin 300mg tid and norco 7.5-325 1 tab po q6h prn all written on 07/24/22-pt also had a prednisone 10mg tab as directed from the pts ent that was filled on 07/25/22 12d/s pt states she never picked up the rx-pt states she had a celexa rx but hasnt taken in months ext med history doesnt show when last filled-
[2022-07-26 08:35] VITALS: BP 129/64; PULSE 81; RESP 16; TEMP 36.5; O2SAT 93
[2022-07-26] MEDS: multivitamin therapeutic Tablet 1 TAB PO (09:23)
--- NOTE | 2022-07-26 10:05 | PC.CHAP ---
Pastoral Care Encounter/Spiritual Assessment Type of Contact [] Declined rifle case repairer visit [] Patient/Family/Request visit [] Outpatient visit [] Follow-up visit [] Physician referral [] Code/Alert [x] Routine visit [] Staff referral [] Actively dying [] Patient sleeping [] Family support [] [] Out of room [] Palliative care [] [] Receiving care in room [] Pre-surgical visit [] Trauma [] Long length of stay [] ICU visit [] Other: Relational/Emotional Strength [] Patient feels connected with others/family/visitors/staff [] Distress [] Loneliness/isolation [] Abandonment Spirituality of Patient [x] Person of Gissel [] Attends Mandaen of their Gissel [x] Believes in Prayer [] Reads Bible or Scientologist materials [] There are Spiritual issues to be addressed Manager Administration Interventions [x] Prayer [] Active listening [] Non-anxious presence [] Spiritual/emotional support [] Crisis/trauma care [] Spiritual counseling [] Bereavement support [] Provided bereavement packet [] Provided Bible/devotional materials [] Provided toy/stuffed animal, coloring book to patient or family member [] Provided Communion [] Anointing/[place] [] Salvation [x] Completed spiritual assessment [] Other: Impact on Illness or Injury [] Angry [] Fearful [] Anxious [] Often cries [] Exhaustion [] Unable to work [] Unable to attend zoroastrian [] Unable to walk/stand [] Unable to read [] Unable to drive [] Unable to eat/drink [] Unable to sleep [] Unable to be with family [] Patient intubated [] Other: Summary Time spent with patient 5 min
--- NOTE | 2022-07-26 11:40 | P.PN_ITS ---
Vitals/I&O/Wt Last Vital Signs Temp 97.7 F 07/26/22 08:35 Pulse 81 07/26/22 08:35 Resp 16 07/26/22 08:35 BP 129/64 07/26/22 08:35 Pulse Ox 93 07/26/22 08:35 O2 Del Method 07/26/22 08:35 O2 Flow Rate 6 07/25/22 20:00 07/25/22 07/26/22 07/26/22 22:59 06:59 14:59 Intake Total 730 / 780 520 / 520 Output Total Balance 725 / 775 520 / 520 Weight last 48 hrs Weight 95.254 kg Physical Exam Const: COMMON NORMALS: no acute distress and patient oriented x3 Resp: COMMON NORMALS: normal respiratory effort, No retractions, No use of accessory muscles and clear to auscultation bilaterally AUSCULTATION: clear to auscultation bilaterally Cardio: COMMON NORMALS: regular rate, regular rhythm, S1 normal heart sound present and S2 normal heart sound present RATE: regular rate RHYTHM: regular rhythm HEART SOUNDS: S1 normal heart sound present and S2 normal heart sound present GI: COMMON NORMALS: Normal to inspection, nondistended, normoactive bowel sounds present and non-tender Extremity: COMMON NORMALS: no pedal edema OTHER: Left and arm wrapped and bandaged Neuro: COMMON NORMALS: patient oriented x3 Psych: COMMON NORMALS: mental status grossly normal Data : 07/25/22 23:49 A&P Assessment and plan (1) Dog bite: (2) Laceration of hand, left: Qualifiers: Encounter type: initial encounter Foreign body presence: unspecified Qualified Code(s): S61.412A - Laceration without foreign body of left hand, initial encounter (3) Hand fracture, left: Qualifiers: Encounter type: initial encounter Fracture type: open Qualified Code(s): S62.92XB - Unspecified fracture of left wrist and hand, initial encounter for open fracture Plan Dog bite with fracture -Status post incision and drainage by orthopedic team -Has received tetanus prophylaxis emergency room -Was discharged on oral antibiotics -Here we will place her on clindamycin for anaerobic coverage, add vancomycin for MRSA coverage, add doxycycline Pasteurella coverage -She is adamant that her dogs have been vaccinated for rabies, however I would recommend quarantine for at least 10 days to see if her dog is symptomatic, or at least advocate for testing the animal, however cases of rabies in vaccinated animals is very rare -Pain control oxycodone -Zofran for nausea -DVT prophylaxis as per orthopedic team -Can discharge today on clindamycin 300 mg 3 times daily and ciprofloxacin 500 twice daily for at least 10 days -Would continue recommend isolation of dog and monitoring for symptoms for rabies if any symptoms go immediately to the emergency room, I advised that if patient any symptoms of rabies then treatment is too late, thus continue to monitor her dog for any rabies symptoms Attestations Medical Necessity Statement*: Patient requires hospitalization, for left hand fracture, laceration, dog bite, will be discharged today Coding Level of Care Code Acute 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
[2022-07-26 11:57] VITALS: BP 126/68; PULSE 78; RESP 16; TEMP 36.5; O2SAT 93
--- NOTE | 2022-07-26 13:08 | PM.PN ---
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
--- NOTE | 2022-07-26 15:16 | P.DS_ITS ---
Discharge Providers Date of Admission: 07/25/22 12:34 Date of Discharge: July 26, 2022 Attending Provider at Admission: Tyson Christian DO Attending Provider at Discharge: Tyson Christian, DO Consults: Internal medicine for medical management?Dr. Robert Primary Care Provider: Karoline Scott Diagnoses at Discharge Discharge Diagnosis (1) Dog bite: Status: Acute (2) Laceration of hand, left: Status: Acute Qualifiers: Encounter type: initial encounter Foreign body presence: unspecified Qualified Code(s): S61.412A - Laceration without foreign body of left hand, initial encounter (3) Hand fracture, left: Status: Acute Qualifiers: Encounter type: initial encounter Fracture type: open Qualified Code(s): S62.92XB - Unspecified fracture of left wrist and hand, initial encounter for open fracture Reason for Visit Reason for Visit: M25.539 Brief History: Patient attempted to break up a dog fight and subsequently sustained multiple dog bites to the left hand and forearm sustaining a fracture of the base of the second metacarpal as well as fracture comminuted of the fifth metacarpal. She was seen in the office and given the fractures as well as multiple dog bites recommended surgical intervention for left hand I&D with fracture fixation. She was subsequently taken to the OR that day for I&D and subsequent hospitalization for IV antibiotics. Hospital Course Hospital Course Patient sustained a dog bite to the left hand and forearm with a second and fifth metacarpal fractures. Patient was seen evaluated in the office and recommended surgical intervention for left hand and forearm irrigation debridement with second and fifth metacarpal irrigation and debridement and open reduction internal fixation. She underwent surgery without any complications. Given the severity of the dog bites numerous as well as bone involvement recommended 24 hours IV antibiotics. As result patient was then admitted hospitalist team was brought on board for evaluation and antibiotic recommendations. Patient was seen evaluated on postop day 1 was recovering well. Her pain is well controlled. At this point time she is completed 24 hours IV antibiotics and we can transition her into a discharge p.o. antibiotics of clindamycin and ciprofloxacin. These were recommended by hospitalist team and appreciate their recommendations. Patient has splint and dressing on in place should be left on until follow-up. She had uncomplicated hospital course and as result we will discharge today and follow-up in the orthopedic office with Dr. Christian in 2 weeks. Patient understands and agrees with current plan. All questions answered. Physical Exam Narrative: Examination: Left hand splint and dressing on in place clean dry and intact. Patient fingertips are warm well-perfused brisk capillary refill less than 2 seconds. She is able to wiggle her fingers. Examination is limited secondary to splint. Unable to palpate pulse secondary to splint. Patient has sensation tact light touch the fingertips unable to thoroughly perform sensation exam secondary to dressing. Const: COMMON NORMALS: no acute distress HENMT: COMMON NORMALS: normocephalic and atraumatic HEAD & SCALP: normocephalic and atraumatic Resp: COMMON NORMALS: normal respiratory effort Discharge Data Studies Completed and Pending Pending at discharge Category Date Time Status C-arm Mini 70669 Routine Exams 07/25/22 12:09 Taken XR hand LT 2V 31515 Routine Exams 07/25/22 Taken Vancomycin Trough Timed Lab 07/27/22 05:00 Ordered Laboratory Results Sodium 137 mmol/L (136-145) 07/25/22 23:49 Potassium 4.0 mmol/L (3.5-5.1) 07/25/22 23:49 Chloride 104 mmol/L (98-107) 07/25/22 23:49 Carbon Dioxide 23 mmol/L (22-29) 07/25/22 23:49 Anion Gap 14.0 (5-19) 07/25/22 23:49 BUN 10 mg/dL (8-23) 07/25/22 23:49 Creatinine 0.8 mg/dL (0.5-0.9) 07/25/22 23:49 GFR Calculation 71.3 mL/min (90-130) L 07/25/22 23:49 Glucose 186 mg/dL (65-115) H 07/25/22 23:49 Calculated Osmolality 288 mOsm/kg (285-295) 07/25/22 23:49 Calcium 8.4 mg/dL (8.5-10.5) L 07/25/22 23:49 Vitals Last Vital Signs Temp 97.7 F 07/26/22 11:57 Pulse 78 07/26/22 11:57 Resp 16 07/26/22 11:57 BP 126/68 07/26/22 11:57 Pulse Ox 93 07/26/22 11:57 O2 Del Method 07/26/22 11:57 O2 Flow Rate 6 07/26/22 08:00 Discharge Plan Discharge Patient Disposition: Home Condition: Stable Prescriptions: New ibuprofen 800 mg tablet 800 mg PO Q8H PRN (Reason: pain) 14 Days Qty: 42 0RF Continued montelukast 10 mg tablet 10 mg PO QAM multivitamin Tablet 1 tab PO DAILY vitamin E 670 mg (1,000 unit) Capsule 670 mg PO DAILY prednisone 10 mg tablet See Rx Instructions .ROUTE .COMPLEX Rx Instructions: as directed (rx filled 07/25/22 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) Vitamin B-12 1,000 mcg Tablet 1,000 mcg PO DAILY vitamin B complex Tablet 1 tab PO DAILY zolpidem 5 mg tablet 5 mg PO BEDTIME PRN (Reason: Sleep) albuterol sulfate 90 mcg/actuation HFA aerosol inhaler 2 puff INHALATION Q6H PRN (Reason: Shortness Of Breath) Vitamin D3 25 mcg (1,000 unit) Tablet 25 mcg PO QAM Dulera 200-5 mcg/actuation HFA aerosol inhaler 2 puff INHALATION BID PRN (Reason: unknown) Vitamin C 500 mg Tablet 500 mg PO DAILY hydrocodone-acetaminophen 7.5-325 mg tablet 1 tab PO Q6H PRN (Reason: pain (scale score 7-10)) 7 Days Qty: 28 0RF ciprofloxacin HCl [Cipro] 500 mg tablet 500 mg PO BID 8 Days Qty: 14 0RF clindamycin HCl 300 mg capsule 300 mg PO TID 8 Days Qty: 21 0RF Discharge Orders: Discharge Order (Routine); Ordered 07/26/22 Ordered By: Tyson Christian Other Ambulatory Orders: Occupational Therapy Eval and Treat Outpatient (Order) Timeframe: 3 Days Facility: [facility] - Location: Occupational Therapy Ordered By: Dudley Robert Referrals: Tyson Christian DO [Physician] - Discharge Diet: Advance as tolerated Discharge Activity: Limit activity as instructed Patient Instructions: Opioid Safety Activity Restrictions/Additional Instructions: Orthopedic discharge instructions: Nonweightbearing to the left hand Keep dressing on in place clean dry and intact Do not get splint wet Keep dressing on until follow-up Take pain medication as prescribed Take antibiotics as prescribed of clindamycin and ciprofloxacin Elevate and ice extremity as needed Range of motion his fingers as tolerated Follow-up with Dr. Christian in office in 2 weeks Feel free to contact the office for any questions or concerns Discharge Attestations Time Spent in Discharge Care*: greater than 30 min Quality Metrics Clinical Quality Measures [ No reported AMI, CVA or VTE this stay] Coding Level of Care Code Acute Chg FW DC note Diagnoses Dog bite W54.0XXA Laceration of hand, left S61.412A Encounter type: initial encounter Foreign body presence: unspecified Hand fracture, left S62.92XB Encounter type: initial encounter Fracture type: open
[2022-07-26 15:36] VITALS: BP 120/61; PULSE 91; RESP 16; TEMP 36.5; O2SAT 90
[2022-07-26 16:36] VITALS: BP 120/61; PULSE 91; RESP 16; TEMP 36.5; O2SAT 90
--- NOTE | 2022-07-26 16:38 | PC.NURSE ---
Discharge Note Patient discharged to home via private vehicle accompanied by family. Discharge instructions reviewed with patient and/or technical support representative. Mobile pharmacy medications and/or prescriptions provided. Belongings/home medications returned.
== END 2022-07-26 16:37 | disposition home or self-care (01) ==
LOC: MEDSURG 19:34
PROVIDERS: Family Medicine; Admitting Provider Student in an Organized Health Care Education/Training Program; PCP Nurse Practitioner Family; Visit Provider Student in an Organized Health Care Education/Training Program
PROC: (CPT 11044; principal; 2022-07-25 12:00)
PROC: (CPT 26615; 2022-07-25 12:00)
DX: S61.452A Open bite of left hand, initial encounter (principal); S51.852A Open bite of left forearm, initial encounter; S62.202A Unspecified fracture of first metacarpal bone, left hand, initial encounter for closed fracture; S62.307A Unspecified fracture of fifth metacarpal bone, left hand, initial encounter for closed fracture; W54.0XXA Bitten by dog, initial encounter
CPT/HCPCS: 11044; 11047; 26615 ×2; 73090; 73120; 73130; 76000; 80048; 90471; 90715; 94640; 96372; 97165; 99204; 99284; C1713; G0378; J0690; J1100; J1885; J2405; J2704; J2795; J3010; J3370; J3490; J7030; J7611; Q0162

== ENCOUNTER → 2022-08-08 10:09 | Outpatient (BNVA) | payer MEDICARE, OTHER, SELFPAY | PROVIDERS: PCP Nurse Practitioner Family; Visit Provider Student in an Organized Health Care Education/Training Program | DX: Z98.890 Other specified postprocedural states (principal); S62.92XB Unspecified fracture of left hand, initial encounter for open fracture; W54.0XXA Bitten by dog, initial encounter | CPT/HCPCS: 73130; 99024; A4590 ==

== ENCOUNTER 2022-08-15 06:00 | Outpatient (RCR) | payer MEDICARE, OTHER, SELFPAY | END 2022-09-06 23:59 | disposition home or self-care (01) | LOC: SOT 06:00 | PROVIDERS: PCP Nurse Practitioner Family; Visit Provider Student in an Organized Health Care Education/Training Program | DX: S62.306S Unspecified fracture of fifth metacarpal bone, right hand, sequela (principal); S62.300 Unspecified fracture of second metacarpal bone, right hand; X58.XXXS Exposure to other specified factors, sequela | CPT/HCPCS: 97166; L3919 ==

== ENCOUNTER 2022-09-07 06:00 | Outpatient (RCR) | payer MEDICARE, OTHER, SELFPAY | END 2022-10-07 23:59 | disposition home or self-care (01) | LOC: SOT 06:00 | PROVIDERS: PCP Nurse Practitioner Family; Visit Provider Student in an Organized Health Care Education/Training Program | DX: S62.306S Unspecified fracture of fifth metacarpal bone, right hand, sequela (principal); S62.300 Unspecified fracture of second metacarpal bone, right hand; X58.XXXS Exposure to other specified factors, sequela | CPT/HCPCS: 97018; 97110; 97140 ==

== ENCOUNTER → 2022-09-08 11:38 | Outpatient (BNVA) | payer MEDICARE, OTHER, SELFPAY | PROVIDERS: PCP Nurse Practitioner Family; Visit Provider Student in an Organized Health Care Education/Training Program | DX: Z47.89 Encounter for other orthopedic aftercare (principal) | CPT/HCPCS: 73130; 99024 ==

== ENCOUNTER → 2022-10-06 11:35 | Outpatient (BNVA) | payer MEDICARE, OTHER, SELFPAY | PROVIDERS: PCP Nurse Practitioner Family; Visit Provider Student in an Organized Health Care Education/Training Program | DX: Z98.890 Other specified postprocedural states (principal); S62.92XB Unspecified fracture of left hand, initial encounter for open fracture; W54.0XXA Bitten by dog, initial encounter | CPT/HCPCS: 73130; 99024 ==

== ENCOUNTER 2022-10-08 06:00 | Outpatient (RCR) | payer MEDICARE, OTHER, SELFPAY | END 2022-11-07 23:59 | disposition home or self-care (01) | LOC: SOT 06:00 | PROVIDERS: PCP Nurse Practitioner Family; Visit Provider Student in an Organized Health Care Education/Training Program | DX: S62.306D Unspecified fracture of fifth metacarpal bone, right hand, subsequent encounter for fracture with routine healing (principal); S62.300D Unspecified fracture of second metacarpal bone, right hand, subsequent encounter for fracture with routine healing; X58.XXXD Exposure to other specified factors, subsequent encounter | CPT/HCPCS: 97018; 97110; 97140 ==

== ENCOUNTER 2022-11-08 06:00 | Outpatient (RCR) | payer MEDICARE, OTHER, SELFPAY | END 2022-12-05 23:59 | disposition home or self-care (01) | LOC: SOT 06:00 | PROVIDERS: PCP Nurse Practitioner Family; Visit Provider Student in an Organized Health Care Education/Training Program | DX: S62.308D Unspecified fracture of other metacarpal bone, subsequent encounter for fracture with routine healing (principal); W54.0XXD Bitten by dog, subsequent encounter | CPT/HCPCS: 97018; 97110; 97140 ==

== ENCOUNTER 2022-12-06 06:00 | Outpatient (RCR) | payer MEDICARE, OTHER, SELFPAY | END 2023-01-05 23:59 | disposition home or self-care (01) | LOC: SOT 06:00 | PROVIDERS: PCP Nurse Practitioner Family; Visit Provider Student in an Organized Health Care Education/Training Program | DX: S62.306D Unspecified fracture of fifth metacarpal bone, right hand, subsequent encounter for fracture with routine healing (principal); S62.300D Unspecified fracture of second metacarpal bone, right hand, subsequent encounter for fracture with routine healing; W54.0XXD Bitten by dog, subsequent encounter | CPT/HCPCS: 97110; 97140 ==

== ENCOUNTER → 2022-12-28 14:21 | Outpatient (BNVA) | payer MEDICARE, OTHER, SELFPAY | PROVIDERS: PCP Nurse Practitioner Family; Visit Provider Student in an Organized Health Care Education/Training Program | DX: S62.92XB Unspecified fracture of left hand, initial encounter for open fracture (principal); W54.0XXA Bitten by dog, initial encounter | CPT/HCPCS: 73130; 99213 ==

== ENCOUNTER → 2023-01-04 14:29 | Outpatient (BNVA) | payer MEDICARE, OTHER, SELFPAY | PROVIDERS: PCP Nurse Practitioner Family; Visit Provider Student in an Organized Health Care Education/Training Program | DX: M75.82 Other shoulder lesions, left shoulder (principal); M75.42 Impingement syndrome of left shoulder | CPT/HCPCS: 73030; 99214 ==

== ENCOUNTER 2024-04-07 13:20 | Emergency (ER) | payer MEDICARE, OTHER, SELFPAY ==
[2024-04-07] VITALS (7 sets, daily range): BP systolic 135; BP diastolic 88; PULSE 47–72; RESP 15–18; TEMP 36.8; O2SAT 92–99
--- NOTE | 2024-04-07 13:25 | ECG_ITS ---
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 Measurements Intervals [place] Rate: 67 P: 69 AK: 146 QRS: -60 QRSD: 130 T: 10 QT: 440 QTc: 467 Interpretive Statements SINUS RHYTHM RIGHT BUNDLE BRANCH BLOCK [120+ ms QRS DURATION, UPRIGHT V1, 40+ ms S IN I/aVL/V4/V5/V6] LEFT ANTERIOR FASCICULAR BLOCK [QRS AXIS <= -45, QR IN I, RS IN II] MINIMAL VOLTAGE CRITERIA FOR LVH, CONSIDER NORMAL VARIANT [MEETS CRITERIA IN ONE OF: R(aVL), S(V1), R(V5), R(V5/V6)+S(V1)] POSSIBLE ANTERIOR MYOCARDIAL INFARCTION , PROBABLY OLD [30 ms Q WAVE IN V3/V4, OR R < 0.2 mV IN V4] Compared to ECG 02/03/2021 12:24:45 Myocardial infarct finding now present Electronically Signed On 04-08-2024 21:50:45 CDT by Lyle Espino M.D. [id number] f
--- NOTE | 2024-04-07 13:37 | XR_ITS ---
WS: [id number] XR chest 1V portable [id number] REASON FOR EXAM: Shortness of breath FINDINGS: The chest is unchanged compared to 02/03/2021. Mild to moderate tortuosity and ectasia of the thoracic aorta. Normal heart size. Calcified granulomas disease in both hemithoraces. 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 Eventration of the right hemidiaphragm. No acute pulmonary parenchymal or pleural abnormality. No lung nodule or lung mass. No adenopathy. Mild degenerative spondylosis in the mid and lower thoracic spine. XR/XR chest 1V portable [id number] IMPRESSION: Stable chest with no acute abnormality.
--- NOTE | 2024-04-07 14:04 | W.ED.SOB ---
HPI - SOB/Dyspnea General: Chief Complaint: Shortness of Breath/Dyspnea Stated Complaint: SOB Time Seen by Provider: 04/07/24 13:34 History of Present Illness: HPI Narrative: 68-year-old female who presents to the emergency room with shortness of breath. She says this has been going on for about a month now. She has had a workup and had a negative D-dimer she tells me. She says just walking up stairs she become so tired and short of breath she has to lay down. No lower extremity swelling. No chest pain. No fevers. No cough. No wheeze. No altered mental status. No focal motor deficits. No abdominal pain. No nausea or vomiting. Review of Systems Narrative: Constitutional symptoms: Negative except as documented in HPI. Skin symptoms: Negative except as documented in HPI. Eye symptoms: Negative except as documented in HPI. ENMT symptoms: Negative except as documented in HPI. Respiratory symptoms: Negative except as documented in HPI. Cardiovascular symptoms: Negative except as documented in HPI. Gastrointestinal symptoms: Negative except as documented in HPI. Genitourinary symptoms: Negative except as documented in HPI. Musculoskeletal symptoms: Negative except as documented in HPI. Neurologic symptoms: Negative except as documented in HPI. Psychiatric symptoms: Negative except as documented in HPI. Endocrine symptoms: Negative except as documented in HPI. [facility] ED PFSH: Medical History History of anxiety Surgical History History of hysterectomy Social History Smoking and tobacco/nicotine status: never used tobacco/nicotine Alcohol intake: never Substance/Drug Use: never Physical Exam Narrative: EXAM NARRATIVE: General: Alert, no acute distress. Skin: Warm, dry. Head: Normocephalic, atraumatic. Neck: Supple, trachea midline. Eye: Extraocular movements are intact. Ears, nose, mouth and throat: mucosa moist. Cardiovascular: Regular, bradycardic, normal peripheral perfusion. Respiratory: Lungs are clear to auscultation, respirations are non-labored, breath sounds are equal, Symmetrical chest wall expansion. Gastrointestinal: Soft, Nontender, Non distended Musculoskeletal: Normal ROM, no deformity. Neurological: Alert and oriented, No focal neurological deficit observed. Psychiatric: Cooperative, appropriate mood & affect. Course Vital Signs: Vital signs: Vital Signs Temperature 98.2 F 04/07/24 13:33 Pulse Rate 62 04/07/24 16:00 Respiratory Rate 15 04/07/24 16:00 Blood Pressure 135/88 04/07/24 14:06 Pulse Oximetry 92 04/07/24 15:30 Oxygen Delivery Me thod Room Air 04/07/24 15:30 MDM - SOB/Dyspnea Medical Decision Making Differential diagnosis for patient with shortness of breath includes but is not limited to and based on the above HPI, review of systems and physical exam: Pneumonia. Bronchitis. Asthma or COPD with acute exacerbation. Acute coronary syndrome / NH. Pulmonary embolism. Anxiety. Congestive heart failure. Viral infections including influenza and Covid-19. Atrial fibrillation. Anxiety. Pleural effusion. Pneumothorax. Workup: Lab work, chest X-ray and EKG ordered to evaluate, rule in and rule out above pathologies Chest x-ray: No acute process. No infiltrate. No pneumothorax. This was reviewed and interpreted by myself the ER physician. EKG: Time 1325. Rate 67. Normal sinus rhythm, No ST-T changes, no ectopy, normal TX & QRS intervals, This was reviewed and interpreted by myself the ER physician at 1328. Lab Review: Laboratory results were reviewed and interpreted by myself the emergency room physician. Lab work is completely unremarkable. No leukocytosis. No anemia. Sodium is normal. BUN and creatinine are within normal limits. Serial troponins are negative. proBNP is negative. Respiratory virus panel is negative. CTA of the chest with PE protocol: No evidence of any pneumonia or PE. There is a small pulmonary nodule. This will need follow-up. This was reviewed and interpreted by myself the emergency room physician. I also reviewed the radiology report. I reviewed the patient's medical record. Reexamination: Patient remained stable. She has had no hypoxemia. No increased work of breathing. She does appear quite anxious. No focal motor deficits. No altered mental status. Assessment and plan: Dyspnea Anxiety -IV Ativan in the emergency room. - Discharged home - Discussed plan with patient. Answered any questions. - Evaluation and treatment of this problem were appropriate in the emergency setting. Lab Data 04/07/24 13:57 04/07/24 13:56 Labs/Radiology: Radiology Impressions Chest X-Ray 04/07/24 13:37 IMPRESSION: Stable chest with no acute abnormality. Chest CTA 04/07/24 15:14 IMPRESSION: 1. No evidence of PE or acute aortic abnormality. 2. Indeterminate right upper lobe 15 mm nodular opacity with mild surrounding ground-glass in the right upper lobe, possibly infectious or inflammatory. Follow-up CT of the chest in 4 weeks is recommended to assess for resolution. If persistent, follow-up PET-CT is recommended to evaluate for neoplasm. ' References: Scott Grayson et al. Guidelines for Management of Incidental Pulmonary Nodules Detected on CT Images: From the Fleischner Society 2017. Radiology. 2017;284(1):228-243. Laboratory Results WBC 6.28 10^3/uL (3.29-11.43) 04/07/24 13:57 RBC 5.04 10^6/uL (3.85-5.65) 04/07/24 13:57 Hgb 14.70 g/dL (11.27-16.99) 04/07/24 13:57 Hct 44.5 % (36-47) 04/07/24 13:57 MCV 88.3 fl (85-98) 04/07/24 13:57 MCH 29.2 pg (27-33) 04/07/24 13:57 MCHC 33.0 g/dL (30-55) 04/07/24 13:57 RDW 13.5 % (12.1-15.1) 04/07/24 13:57 Plt Count 280 10^3/cmm (157-399) 04/07/24 13:57 MPV 9.9 fL (7.4-10.4) 04/07/24 13:57 Neut % (Auto) 46.1 % 04/07/24 13:57 Lymph % (Auto) 43.6 % 04/07/24 13:57 [place] % (Auto) 8.0 % 04/07/24 13:57 Eos % (Auto) 1.3 % 04/07/24 13:57 Baso % (Auto) 0.8 % 04/07/24 13:57 Neut # (Auto) 2.90 10^3/uL (1.8-7.7) 04/07/24 13:57 Lymph # (Auto) 2.7 10^3/uL (0.8-4.8) 04/07/24 13:57 [place] # (Auto) 0.5 10^3/uL (0.2-0.9) 04/07/24 13:57 Eos # (Auto) 0.1 10^3/uL (0.0-0.8) 04/07/24 13:57 Baso # (Auto) 0.1 10^3/uL (0.0-0.1) 04/07/24 13:57 Nucleated RBC % (auto) 0 % 04/07/24 13:57 Nucleated RBCs # 0.0 /100WBC 04/07/24 13:57 Sodium 141 mmol/L (136-145) 04/07/24 13:56 Potassium 4.1 mmol/L (3.5-5.1) 04/07/24 13:56 Chloride 105 mmol/L (98-107) 04/07/24 13:56 Carbon Dioxide 25 mmol/L (22-29) 04/07/24 13:56 Anion Gap 15.1 (5-19) 04/07/24 13:56 BUN 12 mg/dL (8-23) 04/07/24 13:56 Creatinine 0.7 mg/dL (0.5-0.9) 04/07/24 13:56 GFR Calculation 82.7 mL/min (90-130) L 04/07/24 13:56 Glucose 91 mg/dL (65-115) 04/07/24 13:56 Calculated Osmolality 291 mOsm/kg (285-295) 04/07/24 13:56 Lactic Acid 2.5 mmol/L (0.5-2.2) H 04/07/24 13:56 Calcium 9.2 mg/dL (8.5-10.5) 04/07/24 13:56 Total Bilirubin 0.4 mg/dL (0.15-1.2) 04/07/24 13:56 AST 24 U/L (0-32) 04/07/24 13:56 ALT 21 U/L (0-33) 04/07/24 13:56 Alkaline Phosphatase 101 U/L (35-105) 04/07/24 13:56 Troponin T Baseline 36 ng/L (0-10) H 04/07/24 13:56 Troponin T 120 Minute 32.82 ng/L (0-10) H 04/07/24 15:35 Delta Troponin T -3.18 ABS# (0-10) L 04/07/24 15:35 C-Reactive Protein 3.0 mg/L (0.0-4.9) 04/07/24 13:56 NT-Pro-B Natriuret Pep < 36 pg/mL (0-125) 04/07/24 13:56 Total Protein 7.0 g/dL (6.6-8.7) 04/07/24 13:56 Albumin 4.4 g/dL (3.5-5.2) 04/07/24 13:56 Globulin 2.6 g/dL (1.3-4.6) 04/07/24 13:56 Adenovirus (PCR) Not detected (NOT DETECT) 04/07/24 13:56 C. pneumoniae DNA (PCR) Not detected (NOT DETECT) 04/07/24 13:56 Coronavirus 229E (PCR) Not detected (NOT DETECT) 04/07/24 13:56 Human Metapneumovir PCR Not detected (NOT DETECT) 04/07/24 13:56 Influenza A (H1) PCR Not detected (NOT DETECT) 04/07/24 13:56 Influ A (H1/09) PCR Not detected (NOT DETECT) 04/07/24 13:56 Influenza A (H3) PCR Not detected (NOT DETECT) 04/07/24 13:56 Influenza Type A (PCR) Not detected (NOT DETECT) 04/07/24 13:56 Influenza Type B (PCR) Not detected (NOT DETECT) 04/07/24 13:56 M. pneumoniae (PCR) Not detected (NOT DETECT) 04/07/24 13:56 Parainfluenza 1 (PCR) Not detected (NOT DETECT) 04/07/24 13:56 Parainfluenza 2 (PCR) Not detected (NOT DETECT) 04/07/24 13:56 Parainfluenza 3 (PCR) Not detected (NOT DETECT) 04/07/24 13:56 Parainfluenza 4 (PCR) Not detected (NOT DETECT) 04/07/24 13:56 RSV Type A (PCR) Not detected (NOT DETECT) 04/07/24 13:56 RSV Type B (PCR) Not detected (NOT DETECT) 04/07/24 13:56 Entero/Rhino (PCR) Not detected (NOT DETECT) 04/07/24 13:56 SARS-CoV-2 (PCR) Not detected (NOT DETECT) 04/07/24 13:56 All radiology interpretation(s) finalized by discharge Discharge Plan Discharge Patient Disposition: Home Clinical Impression: Exertional dyspnea, Pulmonary nodule Condition: Stable Prescriptions: No Action azithromycin [Zithromax] 500 mg tablet 500 mg PO DAILY 5 Days Qty: 5 0RF montelukast 10 mg tablet 10 mg PO QAM multivitamin Tablet 1 tab PO DAILY vitamin E 670 mg (1,000 unit) Capsule 670 mg PO DAILY Vitamin B-12 1,000 mcg Tablet 1,000 mcg PO DAILY vitamin B complex Tablet 1 tab PO DAILY zolpidem 5 mg tablet 5 mg PO BEDTIME PRN (Reason: Sleep) albuterol sulfate 90 mcg/actuation HFA aerosol inhaler 2 puff INHALATION Q6H PRN (Reason: Shortness Of Breath) Vitamin D3 25 mcg (1,000 unit) Tablet 25 mcg PO QAM Dulera 200-5 mcg/actuation HFA aerosol inhaler 2 puff INHALATION BID PRN (Reason: unknown) Vitamin C 500 mg Tablet 500 mg PO DAILY Discharge Orders: Discharge ED (Routine); Ordered 04/07/24 Ordered By: Kristin Alaniz Referrals: Karoline Scott FNP [Primary Care Provider] - 1-3 days (Please call for appointment) Discharge Diet: Usual diet Discharge Activity: Increase activity as tolerated Patient Instructions: Dyspnea (ED) Activity Restrictions/Additional Instructions: A pulmonary nodule was seen on imaging. This will need follow up imaging with your primary provider. Please schedule an appointment concerning this. Thank you for choosing [facility] for your healthcare needs today. Please realize this is an emergency room and that we are providing you with a medical screening exam and this may not be complete and all inclusive of all the testing and or work up that you may need to determine your ailment or severity of your illness. You have been screened and evaluated and felt safe for discharge. Health conditions do change or evolve sometimes and as such it is important that you follow up with your Primary Doctor to be re checked, 3-5 days is a general good time frame for follow up. You are always welcome to return to the ED for re assessment if your symptoms are worsening or you have new concerns Coding Level of Care Code ED Soil Conservation Teacher for Celia Decker
[2024-04-07 14:15] LABS: Basophils # 0.1 10^3/uL (0.0-0.1); Basophils % 0.8 %; Eosinophils # 0.1 10^3/uL (0.0-0.8); Eosinophils % 1.3 %; Hematocrit 44.5 % (36-47); Lymphocytes # 2.7 10^3/uL (0.8-4.8); Lymphocytes % 43.6 %; Mean Corpuscular Hemoglobin 29.2 pg (27-33); Mean Corpuscular Volume 88.3 fl (85-98); Mean Platelet Volume 9.9 fL (7.4-10.4); Monocytes # 0.5 10^3/uL (0.2-0.9); Neutrophils % 46.1 %; Nucleated Red Blood Cells % 0 %; Platelet Count 280 10^3/cmm (157-399); Red Blood Count 5.04 10^6/uL (3.85-5.65); Red Cell Distribution Width 13.5 % (12.1-15.1); White Blood Count 6.28 10^3/uL (3.29-11.43)
[2024-04-07 14:39] LABS: Troponin(5th) Baseline 36 ng/L (0-10)
[2024-04-07 14:40] LABS: Lactic Sepsis W/Reflex 2.5 mmol/L (0.5-2.2)
[2024-04-07 14:58] LABS: Alanine Aminotransferase 21 U/L (0-33); Albumin Level 4.4 g/dL (3.5-5.2); Alkaline Phosphatase 101 U/L (35-105); Anion Gap 15.1 (5-19); Aspartate Amino Transferase 24 U/L (0-32); Blood Urea Nitrogen 12 mg/dL (8-23); Calcium 9.2 mg/dL (8.5-10.5); Carbon Dioxide 25 mmol/L (22-29); Chloride 105 mmol/L (98-107); Globulin 2.6 g/dL (1.3-4.6); Glomerular Filtration Rate 82.7 mL/min (90-130); Glucose 91 mg/dL (65-115); NT Pro B Type Natriuretic Pept < 36 pg/mL (0-125); Osmolality Calculated 291 mOsm/kg (285-295); Potassium 4.1 mmol/L (3.5-5.1); Sodium 141 mmol/L (136-145); Total Bilirubin 0.4 mg/dL (0.15-1.2)
--- NOTE | 2024-04-07 15:14 | CTR_ITS ---
PROCEDURE INFORMATION: Exam: CTA Chest With Contrast Exam date and time: 04/07/2024 3:46 PM Age: 68 years old Clinical indication: Dyspnea; Prior surgery; Surgery date: 6+ months; Surgery type: Hyst; Patient HX: SOB with exertion TECHNIQUE: Imaging protocol: Computed tomographic angiography of the chest with contrast. Exam focused on the arteries. 3D rendering (Not supervised by radiologist): MIP and/or 3D reconstructed images were created by the technologist. Radiation optimization: All CT scans at this facility use at least one of these dose optimization techniques: automated exposure control; mA and/or kV adjustment per patient size (includes targeted exams where dose is matched to clinical indication); or iterative reconstruction. Contrast material: OMNI 350; Contrast volume: 76 ml; Contrast route: INTRAVENOUS (IV); COMPARISON: CR XR chest 1V portable [id number] 04/07/2024 1:41 PM RADIATION DOSE METRICS: Total DLP (mGy-cm): 422 FINDINGS: Pulmonary arteries: No evidence of pulmonary thromboembolism. Aorta: No evidence of aneurysmal dilatation or dissection of the thoracic aorta. Thyroid: Grossly unremarkable. Lungs: Indeterminate 15 x 10 mm nodular opacity with mild surrounding ground-glass in the right upper lobe abutting the major fissure (image 157 of series 6 and image 47 of series 8). There is mild associated thickening of the fissure in this region. No focal consolidation. Pleural spaces: No evidence of pleural effusion. No pneumothorax. Heart: No cardiomegaly. No pericardial effusion. Mediastinal space: No evidence of mediastinal mass, fluid collection or hematoma. Lymph nodes: No mediastinal or hilar adenopathy. Bones/joints: No evidence of acute fracture or aggressive osseous lesion. Soft tissues: No evidence of fluid collection or hematoma in the superficial soft tissues. Other findings: No evidence of acute abnormality in the upper abdomen. CT/CT angio chest PE protcl [id number] IMPRESSION: 1. No evidence of PE or acute aortic abnormality. 2. Indeterminate right upper lobe 15 mm nodular opacity with mild surrounding ground-glass in the right upper lobe, possibly infectious or inflammatory. Follow-up CT of the chest in 4 weeks is recommended to assess for resolution. If persistent, follow-up PET-CT is recommended to evaluate for neoplasm. ' References: Scott Grayson et al. Guidelines for Management of Incidental Pulmonary Nodules Detected on CT Images: From the Fleischner Society 2017. Radiology. 2017;284(1):228-243.
--- NOTE | 2024-04-07 15:38 | ECG_ITS ---
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 Measurements Intervals [place] Rate: 70 P: 0 NE: 0 QRS: -60 QRSD: 138 T: 50 QT: 495 QTc: 534 Interpretive Statements SINUS RHYTHM WITH 2ND DEGREE AV BLOCK, 2:1 OR MOBITZ TYPE II RIGHT BUNDLE BRANCH BLOCK [120+ ms QRS DURATION, UPRIGHT V1, 40+ ms S IN I/aVL/V4/V5/V6] LEFT ANTERIOR FASCICULAR BLOCK [QRS AXIS <= -45, QR IN I, RS IN II] POSSIBLE LEFT VENTRICULAR HYPERTROPHY [VOLTAGE CRITERIA PLUS LAE OR QRS WIDENING] CRITICAL TEST RESULT Compared to ECG 04/07/2024 13:25:59 Myocardial infarct finding no longer present Electronically Signed On 04-08-2024 22:07:24 CDT by Lyle Espino M.D. [id number]
--- NOTE | 2024-04-07 15:46 | PC.NURSE ---
pt has asked 3 times for food, dr wisdom okayed food at this time pt given sandwich and pudding.
[2024-04-07] MEDS: iohexol 350 mg/mL 500 mL Btl (per mL) IV (15:48)
[2024-04-07 15:58] LABS: Reflex Lactate Order REFLEX LACTIC ORDERD
[2024-04-07 16:01] LABS: Adenovirus Not Detected (NOT DETECT); Chlamydia Pneumoniae Not Detected (NOT DETECT); Coronavirus 229E,HKU1,NL63,OC4 Not Detected (NOT DETECT); Human Metapneumovirus Not Detected (NOT DETECT); Human Rhinovirus/Enterovirus Not Detected (NOT DETECT); Influenza A Not Detected (NOT DETECT); Influenza A H1 Not Detected (NOT DETECT); Influenza A H1-2009 Not Detected (NOT DETECT); Influenza A H3 Not Detected (NOT DETECT); Influenza B Not Detected (NOT DETECT); Mycoplasma Pneumoniae Not Detected (NOT DETECT); Parainfluenza Virus Type 1 Not Detected (NOT DETECT); Parainfluenza Virus Type 2 Not Detected (NOT DETECT); Parainfluenza Virus Type 3 Not Detected (NOT DETECT); Parainfluenza Virus Type 4 Not Detected (NOT DETECT); Respiratory Syncytial Virus A Not Detected (NOT DETECT); Respiratory Syncytial Virus B Not Detected (NOT DETECT); SARS-COV-2 Not Detected (NOT DETECT)
[2024-04-07 16:02] LABS: Troponin 5 2HR 32.82 ng/L (0-10); Troponin 5 2HR Delta -3.18 ABS# (0-10)
[2024-04-07] MEDS: LORazepam 2 mg/mL INJ 1 mL 1 MG IV (16:57)
[2024-04-07 17:00] LABS: Lactic Acid level (Lactate) 1.3 mmol/L (0.5-2.2)
== END 2024-04-07 17:11 | disposition home or self-care (01) ==
PROVIDERS: Emergency Provider Emergency Medicine; PCP Nurse Practitioner Family
DX: R06.00 Dyspnea, unspecified (principal); R91.1 Solitary pulmonary nodule; Z11.52 Encounter for screening for COVID-19
CPT/HCPCS: 36415; 71045; 71275; 80053; 83605; 83880; 84484; 85025; 86140; 87040; 87486; 87581; 87633; 93005; 96374; 99285; J2060; Q9967

== ENCOUNTER → 2024-06-05 13:52 | Outpatient (BNVA) | payer MEDICARE, OTHER, SELFPAY | PROVIDERS: PCP Nurse Practitioner Family; Referring Provider Registered Nurse; Visit Provider Nurse Practitioner Family | DX: L57.0 Actinic keratosis (principal); I78.8 Other diseases of capillaries; L98.8 Other specified disorders of the skin and subcutaneous tissue; D22.5 Melanocytic nevi of trunk; L57.8 Other skin changes due to chronic exposure to nonionizing radiation | CPT/HCPCS: 17000; 99203 ==